=== PATIENT | female | born 2000 | race Caucasian/White ===

== ENCOUNTER 2019-02-17 21:12 | Emergency (ER) | payer OTHER ==
[~2019-02-17] VITALS: Ht 165.1 cm; Wt 61.2 kg
--- NOTE | 2019-02-17 21:30 | ED.ADGEN ---
Adult General Chief Complaint Chief Complaint ".. I was just eating dinner with my family at the restaurant.... And all of a sudden felt nauseated and sick... [place] like my right arm and leg were tingling and numb.... And have lasted a couple minutes seems to be gone now...." " .. She was eating dinner with us at the [employer] restaurant... And all of a sudden it look like she was going to puke, and got pale... And she stated that she had numbness on her right hand and leg so we're brought her right here..." Mother/ Father HPI HPI Patient is a 18 year old female who presents with above hx and complaints Nausea, Rt. sided numbness and maybe weakness of short duration 1 to 2 minutes. Pt. patient has not had similar symptoms in the past. No history of TIAs or CVAs or significant seizure disorders in the past. No history of recent head trauma. No history of travel or specific ill contacts. 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 Does have sensation of a dry mouth. No history of med use or drug use. No history immunosuppression. Currently patient is without symptoms . Patient did have a feeling she was having chills on the way to the hospital. Mother did note that her teeth were chattering. Pt. does not recall any change in her hear rhythm. Review of Systems Review of Systems Constitutional: Complaints of fever and chills Eyes: Denies change in visual acuity, redness, or eye pain [] HENT: Denies nasal congestion or sore throat [] Respiratory: Denies cough or shortness of breath [] Cardiovascular: No additional information not addressed in HPI [] GI: Denies abdominal pain, vomiting, bloody stools or diarrhea []Complaints of nausea. : Denies dysuria or hematuria [] Musculoskeletal: Denies back pain or joint pain [] Integument: Denies rash or skin lesions [] Neurologic: Denies headache, focal weakness or sensory changes [] Complaints of Rt hand numbness and Rt. leg numbness. Endocrine: Denies polyuria or polydipsia [] All other systems were reviewed and found to be within normal limits, except as documented in this note. Family History Family History Noncontributory Current Medications Current Medications Current Medications Medications (Trade) Dose Ordered Sig/Annette Start Time Stop Time Status Last Admin Dose Admin Aspirin (Karmen Aspirin) 325 mg 1X ONCE 02/17/19 23:30 02/17/19 23:31 DC 02/17/19 23:23 325 MG Allergies Allergies Allergies Coded Allergies Type Severity Reaction Last Updated Verified No Known Drug Allergies 02/17/19 No Physical Exam Physical Exam Constitutional: Well developed, well nourished, no acute distress, non-toxic appearance. [] HENT: Normocephalic, atraumatic, bilateral external ears normal, oropharynx moist, no oral exudates, nose swollen turbinates and rhinorrhea Eyes: PERRLA, EOMI, conjunctiva normal, no discharge. [] Neck: Normal range of motion, no tenderness, supple, no stridor. [] Cardiovascular:Heart rate regular rhythm, no murmur [] Lungs & Thorax: Bilateral breath sounds equal apex on auscultation [] Abdomen: Bowel sounds hyperactive, soft, no tenderness, no masses, no pulsatile masses. [] Skin: Warm, dry, no erythema, no rash. [] Back: No tenderness, no CVA tenderness. [] Extremities: No tenderness, no cyanosis, no clubbing, ROM intact, no edema. [] Neurologic: Alert and oriented X 3, normal motor function, normal sensory function, no focal deficits noted. []DTRs are +2 at patella and brachial. No d rift. Personal Financial Advisor equal. Normal NIH Psychologic: Affect anxious, judgement normal, mood normal. [] Current Patient Data Vital Signs Vital Signs Date Time Temp Pulse Resp B/P (MAP) Pulse Ox O2 Delivery O2 Flow Rate FiO2 02/18/19 00:00 74 20 97/59 (72) 98 Room Air 02/17/19 21:36 97.7 Lab Results Laboratory Tests Test 02/17/19 21:50 02/17/19 22:10 02/17/19 22:11 Urine Collection Type Unknown Urine Color Yellow Urine Clarity Clear Urine pH 5.5 Urine Specific [place] <=1.005 Urine Protein Neg (NEG-TRACE) Urine Glucose (UA) Neg mg/dL (NEG) Urine Ketones (Stick) Neg mg/dL (NEG) Urine Blood Small (NEG) Urine Nitrite Neg (NEG) Urine Bilirubin Neg (NEG) Urine Urobilinogen Dipstick 0.2 mg/dL (0.2 mg/dL) Urine Leukocyte Esterase Neg (NEG) Urine RBC Occ /HPF (0-2) Urine WBC Occ /HPF (0-4) Urine Squamous Epithelial Cells Few /LPF Urine Bacteria Few /HPF (0-FEW) Urine Opiates Screen Neg (NEG) Urine Methadone Screen Neg (NEG) Urine Barbiturates Neg (NEG) Urine Phencyclidine Screen Neg (NEG) Urine Amphetamine/Methamphetamine Neg (NEG) Urine Benzodiazepines Screen Neg (NEG) Urine Cocaine Screen Neg (NEG) Urine Cannabinoids Screen Neg (NEG) Urine Ethyl Alcohol Neg (NEG) White Blood Count 8.9 x10^3/uL (4.0-11.0) Red Blood Count 3.88 x10^6/uL (3.50-5.40) Hemoglobin 12.0 g/dL (12.0-15.5) Hematocrit 36.4 % (36.0-47.0) Mean Corpuscular Volume 94 fL (79-100) Mean Corpuscular Hemoglobin 31 pg (25-35) Mean Corpuscular Hemoglobin Concent 33 g/dL (31-37) Red Cell Distribution Width 13.6 % (11.5-14.5) Platelet Count 289 x10^3/uL (140-400) Neutrophils (%) (Auto) 68 % (31-73) Lymphocytes (%) (Auto) 21 % (24-48) L Monocytes (%) (Auto) 8 % (0-9) Eosinophils (%) (Auto) 2 % (0-3) Basophils (%) (Auto) 1 % (0-3) Neutrophils # (Auto) 6.0 x10^3uL (1.8-7.7) Lymphocytes # (Auto) 1.9 x10^3/uL (1.0-4.8) Monocytes # (Auto) 0.7 x10^3/uL (0.0-1.1) Eosinophils # (Auto) 0.2 x10^3/uL (0.0-0.7) Basophils # (Auto) 0.1 x10^3/uL (0.0-0.2) Erythrocyte Sedimentation Rate 14 (0-25) Prothrombin Time 10.4 SEC (9.4-11.4) Prothrombin Time INR 1.0 (0.9-1.1) Activated Partial Thromboplast Time 31 SEC (23-33) Sodium Level 142 mmol/L (136-145) Potassium Level 3.7 mmol/L (3.5-5.1) Chloride Level 107 mmol/L (98-107) Carbon Dioxide Level 28 mmol/L (21-32) Anion Gap 7 (6-14) Blood Urea Nitrogen 12 mg/dL (7-20) Creatinine 0.8 mg/dL (0.6-1.0) Estimated GFR (Cockcroft-Gault) 92.4 Glucose Level 71 mg/dL (70-99) Calcium Level 8.8 mg/dL (8.5-10.1) Magnesium Level 2.3 mg/dL (1.8-2.4) Total Bilirubin 0.3 mg/dL (0.2-1.0) Direct Bilirubin 0.1 mg/dL (0.0-0.2) Aspartate Amino Transferase (AST) 16 U/L (15-37) Alanine Aminotransferase (ALT) 19 U/L (14-59) Alkaline Phosphatase 53 U/L (46-116) Creatine Kinase 110 U/L (26-192) Troponin I Quantitative < 0.017 ng/mL (0-0.055) MI-Nfn-Z-Type Natriuretic Peptide 59 pg/mL (0-124) Total Protein 7.0 g/dL (6.4-8.2) Albumin 3.7 g/dL (3.4-5.0) Lipase 135 U/L (73-393) Thyroid Stimulating Hormone (TSH) 2.851 uIU/mL (0.358-3.740) POC Urine HCG, Qualitative hcg negative (Negative) Microbiology 02/17/19 Blood Culture - Preliminary, Resulted NO GROWTH AFTER 3 DAYS... EKG EKG My interpretation EKG shows a sinus rhythm at 73 bpm. Rhythm is slightly irregular with respiratory phases. No findings acute STEMI of contralateral changes. P wave ?, Possible Afib. [] Radiology/Procedures Radiology/Procedures [address] [address] IMAGING REPORT Signed PATIENT: JOSE FRANCISCO WU MACCOUNT: [id number] : 2000 LOCATION: ER AGE: 18 SEX: F EXAM STATUS: DEP ER ORD. PHYSICIAN: NICKI RDZ MD REASON: Mental status change, right sided weakness PROCEDURE: CHEST PA & LATERAL CHEST PA LATERAL INDICATION: Altered mental status. COMPARISON STUDY: None. FINDINGS: Lungs: Normal lung volume. No pulmonary mass or consolidation. The tracheobronchial tree and hilar structures are normal. Pleura: No pleural effusion or pneumothorax. Heart and Mediastinum: The cardiomediastinal silhouette is normal. The great vessels of the thorax are normal. Bones and Soft Tissues: The bones and soft tissues are within normal limits. IMPRESSION: No acute cardiopulmonary process. Electronically signed by: Raleigh Morgan MD (02/18/2019 2:57 AM) [facility] DICTATED AND SIGNED BY: RALEIGH MORGAN MD DATE: 02/18/19256 CC: NICKI RDZ MD; PCP,UNKNOWN ~ [][place] [address] IMAGING REPORT Signed PATIENT: JOSE FRANCISCO WU MACCOUNT: [id number] : 2000 LOCATION: ER AGE: 18 SEX: F EXAM STATUS: PRE ER ORD. PHYSICIAN: NICKI RDZ MD REASON: Right sided weakness in upper and lower extremities PROCEDURE: CT HEAD WO CONTRAST CT scan of the head without contrast 02/17/2019 Clinical History: Right-sided weakness. Technique: Unenhanced, contiguous, 5 mm axial sections were obtained through the head. One or more of the following individualized dose reduction techniques were utilized for this study: 1. Automated exposure control. 2. Adjustment of the mA and/or kV according to patient size. 3. Use of iterative reconstruction technique. Findings: The ventricles and sulci are within normal limits in size and configuration. No focal area of abnormal attenuation is seen involving the brain parenchyma. No extra-axial fluid collection is seen. No skull fracture is seen. Impression: Negative study. Electronically signed by: Rodney Barbour MD (02/17/2019 10:09 PM) [facility] DICTATED AND SIGNED BY: RODNEY BARBOUR MD DATE: 02/17/192208 CC: NICKI RDZ MD; PCP,UNKNOWN ~ Course & Med Decision Making Course & Med Decision Making Pertinent Labs and Imaging studies reviewed. (See chart for details) Pt. not a candidate for TPA-no current symptoms. Numbness in right hand and leg numbness- 1-2 minutes Pt. declines admission at this time. Pt. declines anticoagulation at this time. Pt. to take daily ASA. Must follow up with primary. Consider Stress testing. Cardiology follow up. On reviewing EKG- will start pt. on Eliquis 5 mg twice a day. - Rx pharmacy picking technician at ED. Call placed to Pt. Discussed with father. He will pickup Rx in the ED. [] Final Impression Final Impression 1. Viral Syndrome 2. Possible Afib. 3. Transient right hand and leg numbness 1 to 2 min 4. Lymphocyte 21 Dragon Disclaimer Dragon Disclaimer This electronic medical record was generated, in whole or in part, using a voice recognition dictation system. Dragon Disclaimer This chart was dictated in whole or in part using Voice Recognition software in a busy, high-work load, and often noisy Emergency Department environment. It may contain unintended and wholly unrecognized errors or omissions. NICKI RDZ MD Feb 17, 2019 21:30
--- NOTE | 2019-02-17 22:12 | RAD ---
CT scan of the head without contrast 02/17/2019 Clinical History: Right-sided weakness. Technique: Unenhanced, contiguous, 5 mm axial sections were obtained through the head. One or more of the following individualized dose reduction techniques were utilized for this study: 1. Automated exposure control. 2. Adjustment of the mA and/or kV according to patient size. 3. Use of iterative reconstruction technique. Findings: The ventricles and sulci are within normal limits in size and configuration. No focal area of abnormal attenuation is seen involving the brain parenchyma. No extra-axial fluid collection is seen. No skull fracture is seen. Impression: Negative study. Electronically signed by: Rodney Barbour MD (02/17/2019 10:09 PM) [facility]
[2019-02-17 22:14] LABS: AMPHETAMINE/METHAMPHETAMINE NEG (NEG); BARBITURATES NEG (NEG); BENZODIAZEPINES NEG (NEG); CANNABINOIDS NEG (NEG); COCAINE NEG (NEG); METHADONE NEG (NEG); OPIATES NEG (NEG); PHENCYCLIDINE NEG (NEG)
[2019-02-17 22:28] LABS: BACTERIA,URINE FEW /HPF (0-FEW); BILIRUBIN,URINE NEG (NEG); CLARITY,URINE CLEAR; COLOR,URINE YELLOW; GLUCOSE,URINE NEG (NEG); NITRITE,URINE NEG (NEG); RBC,URINE OCC /HPF (0-2); SQUAMOUS EPITHELIAL CELL,UR FEW /LPF; UROBILINOGEN,URINE 0.2 mg/dL (0.2 mg/dL); WBC,URINE OCC /HPF (0-4)
[2019-02-17 22:34] LABS: BASO # 0.1 x10^3/uL (0.0-0.2); BASO % 1 % (0-3); EOS # 0.2 x10^3/uL (0.0-0.7); EOS % 2 % (0-3); HEMATOCRIT 36.4 % (36.0-47.0); LYMPH # 1.9 x10^3/uL (1.0-4.8); LYMPH % 21 % (24-48); MEAN CORPUSCULAR HEMOGLOBIN 31 pg (25-35); MEAN CORPUSCULAR HGB CONC 33 g/dL (31-37); MEAN CORPUSCULAR VOLUME 94 fL (79-100); MONO # 0.7 x10^3/uL (0.0-1.1); MONO % 8 % (0-9); NEUT % 68 % (31-73); PLATELET COUNT 289 x10^3/uL (140-400); RED BLOOD COUNT 3.88 x10^6/uL (3.50-5.40); RED CELL DISTRIBUTION WIDTH 13.6 % (11.5-14.5); WHITE BLOOD COUNT 8.9 x10^3/uL (4.0-11.0)
[2019-02-17 23:01] LABS: ALBUMIN 3.7 g/dL (3.4-5.0); CALCIUM 8.8 mg/dL (8.5-10.1); CREATININE 0.8 mg/dL (0.6-1.0); DIRECT BILIRUBIN 0.1 mg/dL (0.0-0.2); GFR 92.4; MAGNESIUM 2.3 mg/dL (1.8-2.4); POTASSIUM 3.7 mmol/L (3.5-5.1); TOTAL BILIRUBIN 0.3 mg/dL (0.2-1.0)
[2019-02-17] MEDS ORDERED: ASPIRIN 325 MG TABLET PO ONE (23:30)
[2019-02-18] VITALS: BP 97/59
--- NOTE | 2019-02-18 03:00 | RAD ---
CHEST PA LATERAL INDICATION: Altered mental status. COMPARISON STUDY: None. FINDINGS: Lungs: Normal lung volume. No pulmonary mass or consolidation. The tracheobronchial tree and hilar structures are normal. Pleura: No pleural effusion or pneumothorax. Heart and Mediastinum: The cardiomediastinal silhouette is normal. The great vessels of the thorax are normal. Bones and Soft Tissues: The bones and soft tissues are within normal limits. IMPRESSION: No acute cardiopulmonary process. Electronically signed by: Balbir Morgan MD (02/18/2019 2:57 AM) [facility]
--- NOTE | 2019-02-18 06:41 | EKG ---
[address] [address] Test Date: 2019-02-17 Test Time: 22:18:38 Pat Name: JOSE FRANCISCO WU Department: Room: Gender: F [facility]: : 2000 Requested By: NICKI RDZ Order Number: [id number] Reading MD: Measurements Intervals [place] Rate: 73 P: NC: QRS: 72 QRSD: 80 T: 52 QT: 384 QTc: 427 Interpretive Statements IRREGULAR RHYTHM, NO P-WAVE FOUND QRS(T) CONTOUR ABNORMALITY CONSIDER ANTEROSEPTAL MYOCARDIAL DAMAGE POSSIBLY ABNORMAL ECG RI6.01 No previous ECG available for comparison
== END 2019-02-18 | disposition home or self-care (01) ==
LOC: ER 21:12
DX: B34.9 Viral infection, unspecified (principal); R41.82 Altered mental status, unspecified; R20.0 Anesthesia of skin; D72.820 Lymphocytosis (symptomatic); R53.1 Weakness
CPT/HCPCS: 36415; 70450; 71046; 80048; 80076; 80307; 81001; 81025; 82550; 83690; 83735; 83880; 84443; 84484; 85025; 85610; 85651; 85730; 87040; 93005; 99285